=== PATIENT | male | born 1950 | race Caucasian/White ===

== ENCOUNTER 2017-07-28 19:17 | Emergency (ER) | payer MEDICARE, OTHER ==
[2017-07-28] MEDS ORDERED: SODIUM CHLORIDE 0.9% 1000 ML SOL IV SCH (19:30)
[2017-07-28 19:31] LABS: BASOPHILS % (AUTO) 1 % (0-3); EOSINOPHILS % (AUTO) 2 % (0-9); HEMATOCRIT 29 % (39-53); MEAN CORPUSCULAR HGB CONC 34.7 gm/dl (32.0-36.0); MEAN CORPUSCULAR VOLUME 90 fL (80-100); MONOCYTES % (AUTO) 6.6 % (0-12); NEUTROPHILS % (AUTO) 47.5 % (37-80)
[2017-07-28 19:48] VITALS: PULSE 63
[2017-07-28 19:56] LABS: GLOM FILT RATE 59 mL/min (>60); POTASSIUM 3.6 mMol/L (3.5-5.1); SODIUM 138 mMol/L (136-145); THYROID STIMULATING HORMONE 1.647 uIU/ml (0.358-3.740)
[2017-07-28 20:24] VITALS: BP 102/54; RESP 20; TEMP 97.3; O2SAT 96
== END 2017-07-28 20:58 | disposition home or self-care (01) | DRG 312 ==
LOC: ED 19:17
DX: R55 Syncope and collapse (principal)
CPT/HCPCS: 36415; 80048; 84443; 84484; 85025; 93005; 96365; 99284